=== PATIENT | male | born 1940 | race Caucasian/White ===

== ENCOUNTER 2024-03-07 19:17 | Inpatient (IN) | payer MEDICARE, BC ==
[~2024-03-07] VITALS: Ht 175.3 cm; Wt 83.9 kg
[2024-03-07 19:39] LABS: BASOPHILS % (AUTO) 0.2 % (0.0-2.0); EOSINOPHILS % (AUTO) 0.2 % (0.0-7.0); HEMATOCRIT 44.6 % (36.7-47.1); HEMOGLOBIN 14.5 g/dL (12.5-16.3); LYMPHOCYTES # (AUTO) 0.2 K/uL (0.8-4.8); LYMPHOCYTES % (AUTO) 3.6 % (20.5-51.5); MEAN CORPUSCULAR HEMOGLOBIN 28.5 uug (23.8-33.4); MEAN CORPUSCULAR HGB CONC 32 g/dL (32.5-36.3); MEAN CORPUSCULAR VOLUME 87.9 fL (73.0-96.2); MONOCYTES # (AUTO) 0.2 K/uL (0.1-1.30); MONOCYTES % (AUTO) 4.4 % (0.0-11.0); NEUTROPHILS # (AUTO) 5.1 K/uL (1.8-8.9); NEUTROPHILS % (AUTO) 91.6 % (38.5-71.5); PLATELET COUNT (AUTO) 144 K/uL (152-348); RED BLOOD CELL COUNT(AUTO) 5.08 MIL/uL (4.06-5.63); RED CELL DISTRIBUTION WIDTH 17.1 % (12.1-16.2); WHITE BLOOD COUNT (AUTO) 5.5 K/uL (3.6-10.2)
[2024-03-07 19:43] LABS: DIFFERENTIAL COMMENT 1
[2024-03-07 19:48] LABS: CALCIUM 8.5 mg/dL (8.5-10.1); CARBON DIOXIDE 28 mmol/L (21-32); CHLORIDE 105 mmol/L (98-107); CREATININE 2.2 mg/dL (0.6-1.3); GLUCOSE 130 mg/dL (74-106); POTASSIUM 3.8 mmol/L (3.5-5.1); SODIUM SERUM 142 mmol/L (136-145); UREA NITROGEN, BLOOD 30 mg/dL (7-18)
[2024-03-07 20:00] LABS: ALANINE AMINOTRANSFERASE 1569 U/L (16-63); ALBUMIN 3.1 g/dL (3.4-5.0); ALKALINE PHOSPHATASE 272 U/L (50-136); BILIRUBIN,TOTAL 2.5 mg/dL (0.2-1.0); NT-PRO BNP 665 pg/mL (0-125); TOTAL PROTEIN, SERUM 6.8 g/dL (6.4-8.2)
[2024-03-07] MEDS: IV NS 1000 ML 1,000 ML IV ONE (20:12)
[2024-03-07 20:23] LABS: ASPARTATE AMINOTRANSFERASE 3050 U/L (15-37)
[2024-03-07 21:42] LABS: *BILIRUBIN,URIN 1+ (NEGATIVE); *BLOOD, URINE 2+ (NEGATIVE); *CLARITY,URINE CLEAR (CLEAR); *KETONES,URINE TRACE (NEGATIVE); *PROTEIN,URINE 1+ (NEGATIVE); LEUKOCYTE ESTERASE ,URINE NEGATIVE (NEGATIVE); NITRITE, URINE NEGATIVE (NEGATIVE); PH,URINE 5.5 (5.0-8.0); UGLUCOSE 2+ (NEGATIVE)
[2024-03-07 21:54] LABS: *COLOR,URINE DARK YELLOW (YELLOW)
[2024-03-07 22:30] LABS: BACTERIA,URINE NONE SEEN /HPF (NONE SEEN); SQUAMOUS EPITHELIAL CELL,UR FEW /HPF (NONE SEEN); WBC,URINE 0-3 /HPF (0-3)
[2024-03-08] MEDS ORDERED: EMPA25TA PO (01:04)
[2024-03-08] MEDS ORDERED: POTA10CA43 PO (01:04)
[2024-03-08] MEDS ORDERED: PANT40TA49 PO (01:04)
[2024-03-08] MEDS ORDERED: MIDO5TAB5 PO (01:04)
[2024-03-08] MEDS ORDERED: TORS20TA3 PO (01:04)
[2024-03-08] MEDS ORDERED: ROSU20TA2 PO (01:04)
[2024-03-08] MEDS ORDERED: DULO30CA2 PO (01:04)
[2024-03-08] MEDS ORDERED: NALO12.52 PO (01:04)
[2024-03-08] MEDS ORDERED: CALC30CA PO (01:04)
[2024-03-08 02:37] LABS: ETHANOL < 3 MG/DL (0-10)
[2024-03-08 04:49] LABS: BILIRUBIN,DIRECT 2.5 mg/dL (0.0-0.2); BILIRUBIN,TOTAL 3.4 mg/dL (0.2-1.0); TOTAL PROTEIN, SERUM 6.6 g/dL (6.4-8.2)
[2024-03-08] MEDS ORDERED: ACETYLCYSTEINE IV 0 MG in IV DEXTROSE 5% 200 ML IV ONE (05:30)
[2024-03-08] MEDS ORDERED: ONDANSETRON 4 MG/2 ML VIAL IV PRN (05:45)
[2024-03-08] MEDS ORDERED: MAGNESIUM HYDROXIDE 30 ML LIQUID UDC PO PRN (05:45)
[2024-03-08] MEDS ORDERED: PIPERACILLIN/TAZO 2.25 G in IV DEXTROSE 5% 50 ML IV SCH (05:45)
[2024-03-08] MEDS ORDERED: REMEDY ESSENTIAL ZINC PASTE 113 GM TP PRN (05:45)
[2024-03-08] MEDS ORDERED: ACETYLCYSTEINE IV 0 MG in IV D5W 1000ML 1,000 ML IV SCH (05:45)
[2024-03-08] MEDS ORDERED: PIPERACILLIN/TAZO 2.25 G in IV DEXTROSE 5% 50 ML IV ONE (06:30)
[2024-03-08 07:53] VITALS: BP 132/82; TEMP 97.5; O2SAT 97
[2024-03-08 08:48] LABS: ALBUMIN 2.8 g/dL (3.4-5.0); BILIRUBIN,DIRECT 2.5 mg/dL (0.0-0.2); BILIRUBIN,TOTAL 3.4 mg/dL (0.2-1.0); TOTAL PROTEIN, SERUM 6.3 g/dL (6.4-8.2)
[2024-03-08] MEDS: EMPAGLIFLOZIN 25 MG TABLET PO SCH (09:00)
[2024-03-08] MEDS ORDERED: Medication Not On Formulary EA (Empagliflozin (Jardiance) 25 MG) PO SCH (09:00)
[2024-03-08] MEDS: IV NS 1000 ML 1,000 ML IV PRN (09:01)
[2024-03-08] MEDS: PANTOPRAZOLE SODIUM 40 MG VIAL IV SCH (09:02)
[2024-03-08] MEDS: MIDODRINE HCL 5 MG TABLET PO SCH (09:03)
[2024-03-08] MEDS: PIPERACILLIN SODIUM/TAZOBACTAM 3.375 G in IV DEXTROSE 5% 100 ML IV SCH (09:03)
[2024-03-08] MEDS ORDERED: NALOXONE HCL 0.4 MG/ML AMPUL IV PRN (10:15)
[2024-03-08] MEDS ORDERED: OXYCODONE HCL 10 MG TAB.SR.12H PO PRN (10:15)
[2024-03-08] MEDS: OXYCODONE HCL 5 MG TABLET PO PRN ×2 (10:21→14:55)
[2024-03-08] MEDS ORDERED: METO2.5T2 PO (10:33)
[2024-03-08] MEDS ORDERED: TRELEGY 200-62.5-25 INH (10:33)
[2024-03-08] MEDS ORDERED: FERR-56 PO (10:33)
[2024-03-08] MEDS ORDERED: OXYC10TA49 PO (10:33)
[2024-03-08 11:49] VITALS: BP 98/45; TEMP 97.4; O2SAT 98
[2024-03-08 15:35] VITALS: BP 135/87; TEMP 98.2; O2SAT 100
[2024-03-08 19:00] VITALS: BP 108/48; TEMP 98.4; O2SAT 95
[2024-03-08] MEDS: DULOXETINE 30 MG CAPSULE.DR PO SCH (20:39)
[2024-03-08] MEDS ORDERED: PANTOPRAZOLE SODIUM 40 MG TABLET.DR PO SCH (21:00)
[2024-03-08] MEDS ORDERED: CALCIFEDIOL PO SCH (21:00)
[2024-03-09] VITALS: BP 114/57; TEMP 98; O2SAT 94
[2024-03-09 04:00] VITALS: BP 109/57; TEMP 97.4; O2SAT 95
[2024-03-09 05:11] LABS: HEPATITIS A AB, TOTAL Positive (Negative); HEPATITIS B SURFACE AG Negative (Negative); HEPATITIS C VIRUS ANTIBODY Non Reactive (Non Reactive)
[2024-03-09 07:07] LABS: BASOPHILS # (AUTO) 0.1 K/UL (0.0-0.2); BASOPHILS % (AUTO) 0.4 % (0.0-2.0); EOSINOPHILS # (AUTO) 0.1 K/uL (0.0-0.7); EOSINOPHILS % (AUTO) 0.9 % (0.0-7.0); HEMATOCRIT 40.7 % (36.7-47.1); HEMOGLOBIN 13.3 g/dL (12.5-16.3); LYMPHOCYTES # (AUTO) 0.9 K/uL (0.8-4.8); LYMPHOCYTES % (AUTO) 7.7 % (20.5-51.5); MEAN CORPUSCULAR HEMOGLOBIN 28.5 uug (23.8-33.4); MEAN CORPUSCULAR HGB CONC 33 g/dL (32.5-36.3); MEAN CORPUSCULAR VOLUME 87.2 fL (73.0-96.2); MONOCYTES # (AUTO) 0.9 K/uL (0.1-1.30); MONOCYTES % (AUTO) 7.1 % (0.0-11.0); NEUTROPHILS # (AUTO) 10.4 K/uL (1.8-8.9); NEUTROPHILS % (AUTO) 83.9 % (38.5-71.5); PLATELET COUNT (AUTO) 138 K/uL (152-348); RED BLOOD CELL COUNT(AUTO) 4.66 MIL/uL (4.06-5.63); RED CELL DISTRIBUTION WIDTH 17.2 % (12.1-16.2); WHITE BLOOD COUNT (AUTO) 12.4 K/uL (3.6-10.2)
[2024-03-09 07:24] LABS: DIFFERENTIAL COMMENT 1
[2024-03-09 07:25] LABS: ALANINE AMINOTRANSFERASE 670 U/L (16-63); ALKALINE PHOSPHATASE 188 U/L (50-136); ASPARTATE AMINOTRANSFERASE 389 U/L (15-37); BILIRUBIN,TOTAL 1.7 mg/dL (0.2-1.0); CALCIUM 8.5 mg/dL (8.5-10.1); CARBON DIOXIDE 25 mmol/L (21-32); CHLORIDE 104 mmol/L (98-107); CREATININE 1.6 mg/dL (0.6-1.3); GLUCOSE 93 mg/dL (74-106); LIPASE 13 U/L (16-77); MAGNESIUM 2.4 mg/dL (1.8-2.4); PHOSPHOROUS 3.1 mg/dL (2.5-4.9); POTASSIUM 3.7 mmol/L (3.5-5.1); SODIUM SERUM 140 mmol/L (136-145); TOTAL PROTEIN, SERUM 6.8 g/dL (6.4-8.2); UREA NITROGEN, BLOOD 24 mg/dL (7-18)
[2024-03-09 09:39] VITALS: BP 143/62; TEMP 97.5; O2SAT 94
[2024-03-10 13:06] LABS: *ANTI-SCLERODERMA-70 AB <0.2 AI (0.0-0.9); *RNP ANTIBODIES 0.2 AI (0.0-0.9); *SJOGREN'S ANTI-SS-A <0.2 AI (0.0-0.9); *SJOGREN'S ANTI-SS-B <0.2 AI (0.0-0.9); *SMITH ANTIBODIES <0.2 AI (0.0-0.9); ANTI-DNA(DS) AB, QN 2 IU/mL (0-9); ANTI-NUCLEAR AB DIRECT Negative (Negative)
[2024-03-12 15:08] LABS: ANTI-MITOCHONDRIAL AB <20.0 Units (0.0-20.0)
== END 2024-03-09 13:20 | disposition home health service (06) | DRG 442 ==
LOC: ER 19:17 → TELE-TD3 03-08 05:30 → TELE3 03-08 10:40
PROVIDERS: ADMIT Nurse Practitioner Acute Care; ATTEND Nurse Practitioner Acute Care
PROC: 05HF33Z Insertion of Infusion Device into Left Cephalic Vein, Percutaneous Approach (ICD-10-PCS; principal; 2024-03-08)
DX: K72.00 Acute and subacute hepatic failure without coma (principal); N17.9 Acute kidney failure, unspecified; K83.8 Other specified diseases of biliary tract; K21.9 Gastro-esophageal reflux disease without esophagitis; F32.A Depression, unspecified; E88.09 Other disorders of plasma-protein metabolism, not elsewhere classified; E86.0 Dehydration; E78.5 Hyperlipidemia, unspecified; E66.9 Obesity, unspecified; E11.9 Type 2 diabetes mellitus without complications; Z90.49 Acquired absence of other specified parts of digestive tract; Z98.84 Bariatric surgery status; Z96.651 Presence of right artificial knee joint; Z96.641 Presence of right artificial hip joint; Z88.6 Allergy status to analgesic agent; Z96.82 Presence of neurostimulator
CPT/HCPCS: 36415; 70450; 71045; 83690; 83735; 84100; 84484; 85025; 85610; 85730; 86038; 86235; 86708; 86803; 87340; A4606; A4663; G0378; G0480; J2470; J2543; J7040